=== PATIENT | male | born 1990 | race African-American/Black ===

== ENCOUNTER 2017-02-10 12:34 | Inpatient (IN) | payer BC, MEDICAID ==
[~2017-02-10] VITALS: Ht 167.6 cm; Wt 89.3 kg
[2017-02-10] MEDS ORDERED: HYDROmorphone 1 mg/ml syringe IV ONE ×2 (13:00→14:55)
[2017-02-10] MEDS ORDERED: HYDROmorphone inj. 0.5 MG/0.5 ML DISP.SYRIN ONE ×2 (13:21→14:58)
[2017-02-10] MEDS: normal saline 1000ml 1,000 ML IV SCH ×6 (13:22→20:03)
[2017-02-10] MEDS ORDERED: diphenhydrAMINE 50 mg/ml inj IV ONE (13:30)
[2017-02-10 13:31] LABS: ABSOLUTE RETICS # 127300 /CUMM (23000-93000); BASOPHILS % (AUTO) 0.4 % (0-1); EOSINOPHILS # (AUTO) 0.1 X10'3 (0-0.9); EOSINOPHILS % (AUTO) 1.2 % (0-6); HEMOGLOBIN 13.7 g/dl (14.0-17.9); LYMPHOCYTES # (AUTO) 1.8 X10'3 (1.1-4.8); MEAN CORPUSCULAR HEMOGLOBIN 24.7 PG (27.0-31.0); MEAN CORPUSCULAR HGB CONC 32.5 % (33.0-36.5); MEAN CORPUSCULAR VOLUME 75.9 FL (78-98); MEAN PLATELET VOLUME 9.3 FL (7.4-10.4); MONOCYTES # (AUTO) 0.5 X10'3 (0-0.9); MONOCYTES % (AUTO) 6.6 % (2-12); NEUTROPHILS # (AUTO) 4.9 X10'3 (1.8-7.7); NEUTROPHILS % (AUTO) 66.8 % (42-75); PLATELET COUNT 180 X10'3 (140-440); RED BLOOD COUNT 5.53 X10'6 (4.70-6.10); RED CELL DISTRIBUTION WIDTH 17.6 % (11.5-14.5); RETICULOCYTE % (AUTO) 2.3 % (0.5-1.5); WHITE BLOOD COUNT 7.3 X10'3 (4.5-11.0)
[2017-02-10 13:43] LABS: ALANINE AMINOTRANSFERASE 36 U/L (12-78); ALBUMIN 4.2 G/DL (3.4-5.0); ALBUMIN/GLOBULIN RATIO 1.2 (1.1-1.5); ALKALINE PHOSPHATASE 136 IU/L (46-116); ANION GAP 9 (8-16); ASPARTATE AMINO TRANSFERASE 21 U/L (10-37); BILIRUBIN,TOTAL 1.2 MG/DL (0.1-1.0); BLOOD UREA NITROGEN 9 MG/DL (7-18); BUN/CREATININE RATIO 7.3 (5.4-32.0); CALCIUM 9.6 MG/DL (8.5-10.1); CHLORIDE 107 MMOL/L (99-107); CREATININE 1.23 MG/DL (0.60-1.10); GLUCOSE 105 MG/DL (70-104); POTASSIUM 3.8 MMOL/L (3.5-5.1); SODIUM 143 MMOL/L (135-145); TOTAL CARBON DIOXIDE 26.6 MMOL/L (24-32); TOTAL PROTEIN 7.7 G/DL (6.4-8.2); eGFR 72 ML/MIN
[2017-02-10] MEDS ORDERED: HYDROmorphone inj. 0.5 MG/0.5 ML DISP.SYRIN IV ONE (14:05)
[2017-02-10 15:04] LABS: CLARITY,URINE CLEAR (Clear); COLOR,URINE YELLOW (Yellow); GLUCOSE, URINE NEGATIVE (Neg); KETONES,URINE NEGATIVE (Neg); LEUKOCYTE ESTERASE ,URINE NEGATIVE (Neg); NITRITES, URINE NEGATIVE (Neg); OCCULT BLOOD,URINE NEGATIVE (Neg); PROTEIN,URINE NEGATIVE (Neg); UROBILINOGEN,URINE 0.2 E.U/dL (0.2-1.0)
[2017-02-10 15:14] LABS: URINE AMPHETAMINE SCREEN NEGATIVE (Neg); URINE BARBITUATE SCREEN NEGATIVE (Neg); URINE BENZODIAZEPINES SCREEN NEGATIVE (Neg); URINE CANNABINOID SCREEN POSITIVE (Neg); URINE COCAINE SCREEN NEGATIVE (Neg); URINE METHADONE SCREEN NEGATIVE (Neg); URINE OPIATE SCREEN NEGATIVE (Neg); URINE PHENCYCLIDINE SCREEN NEGATIVE (Neg)
[2017-02-10] MEDS ORDERED: morphine 5 MG/ML injection IV ONE (15:25)
[2017-02-10 15:28] LABS: UA COLLECTION TYPE VOIDED
[2017-02-10] MEDS ORDERED: normal saline 1000ml 1,000 ML IV SCH (16:40)
[2017-02-10] MEDS ORDERED: acetaminophen 650mg rectal suppository RC PRN (18:15)
[2017-02-10] MEDS ORDERED: mag hydrox/Alum hydrox/simeth 30ml oral suspension PO PRN (18:15)
[2017-02-10] MEDS ORDERED: metoclopramide 5 mg/ml inj IV PRN (18:15)
[2017-02-10] MEDS ORDERED: HYDROcodone/acetaminophen 5mg/325mg tablet PO PRN (18:15)
[2017-02-10] MEDS ORDERED: diphenhydrAMINE 25mg capsule PO PRN (18:15)
[2017-02-10] MEDS ORDERED: acetaminophen 325mg tablet PO PRN ×2 (18:15)
[2017-02-10] MEDS ORDERED: HYDROcodone/acetaminophen 10/325mg tab PO PRN (18:15)
[2017-02-10] MEDS ORDERED: HYDROmorphone 1 mg/ml syringe IV PRN ×2 (18:15)
[2017-02-10] MEDS ORDERED: diphenhydrAMINE 50 mg/ml inj IV PRN (18:15)
[2017-02-10] MEDS ORDERED: ondansetron/PF 4mg/2ml inj IV PRN (18:15)
[2017-02-10] MEDS ORDERED: magnesium hydroxide 30ml (MOM) UD suspension PO PRN (18:15)
[2017-02-10] MEDS ORDERED: bisacodyl 10mg suppository rectal RC PRN (18:15)
[2017-02-10] MEDS ORDERED: normal saline 1000ml 1,000 ML IVB ONE (18:20)
[2017-02-10] MEDS ORDERED: HYDROmorphone/NS 1 mg/ml CADD 50 ML IV SCH ×2 (18:40→18:50)
[2017-02-10] MEDS ORDERED: CADD PCA waste documentation MC SCH (18:49)
[2017-02-10] MEDS: docusate sod 100mg capsule PO SCH (20:07)
[2017-02-10] MEDS: heparin, porcine 5000 units/ml vial SQ SCH (20:08)
[2017-02-10] MEDS ORDERED: naloxone 0.4 mg/ml inj IV PRN (20:35)
[2017-02-10] MEDS: HYDROmorphone/NS 1 mg/ml CADD 50 ML IV SCH ×2 (21:00→21:49)
[2017-02-10] MEDS ORDERED: temazepam 15mg capsule PO PRN (21:00)
[2017-02-10] MEDS: ketorolac trometh. 30mg/ml inj. IV PRN (22:44)
[2017-02-10 23:00] VITALS: BP 110/59
[2017-02-11] MEDS: HYDROmorphone/NS 1 mg/ml CADD 50 ML IV SCH ×12 (01:00→23:00)
[2017-02-11] MEDS: normal saline 1000ml 1,000 ML IV SCH ×3 (05:07→23:50)
[2017-02-11 06:08] LABS: BASOPHILS % (AUTO) 0.2 % (0-1); EOSINOPHILS # (AUTO) 0.1 X10'3 (0-0.9); EOSINOPHILS % (AUTO) 2.7 % (0-6); HEMATOCRIT 35.8 % (42.0-52.0); HEMOGLOBIN 11.6 g/dl (14.0-17.9); LYMPHOCYTES % (AUTO) 19.1 % (21-51); MEAN CORPUSCULAR HEMOGLOBIN 24.6 PG (27.0-31.0); MEAN CORPUSCULAR HGB CONC 32.5 % (33.0-36.5); MEAN CORPUSCULAR VOLUME 75.9 FL (78-98); MEAN PLATELET VOLUME 8.7 FL (7.4-10.4); MONOCYTES # (AUTO) 0.4 X10'3 (0-0.9); MONOCYTES % (AUTO) 7.4 % (2-12); NEUTROPHILS # (AUTO) 3.6 X10'3 (1.8-7.7); NEUTROPHILS % (AUTO) 70.6 % (42-75); PLATELET COUNT 91 X10'3 (140-440); RED BLOOD COUNT 4.72 X10'6 (4.70-6.10); RED CELL DISTRIBUTION WIDTH 17.1 % (11.5-14.5); WHITE BLOOD COUNT 5.1 X10'3 (4.5-11.0)
[2017-02-11 06:39] LABS: ALANINE AMINOTRANSFERASE 60 U/L (12-78); ALBUMIN 3.4 G/DL (3.4-5.0); ALBUMIN/GLOBULIN RATIO 1.1 (1.1-1.5); ALKALINE PHOSPHATASE 105 IU/L (46-116); ANION GAP 6 (8-16); ASPARTATE AMINO TRANSFERASE 123 U/L (10-37); BILIRUBIN,TOTAL 1.2 MG/DL (0.1-1.0); BLOOD UREA NITROGEN 7 MG/DL (7-18); BUN/CREATININE RATIO 6.9 (5.4-32.0); CALCIUM 8.5 MG/DL (8.5-10.1); CHLORIDE 108 MMOL/L (99-107); CREATININE 1.01 MG/DL (0.60-1.10); GLUCOSE 97 MG/DL (70-104); POTASSIUM 3.9 MMOL/L (3.5-5.1); SODIUM 141 MMOL/L (135-145); TOTAL CARBON DIOXIDE 26.8 MMOL/L (24-32); TOTAL PROTEIN 6.6 G/DL (6.4-8.2); eGFR > 90 ML/MIN
[2017-02-11] MEDS: ketorolac trometh. 30mg/ml inj. IV PRN (07:51)
[2017-02-11] MEDS: pantoprazole 40mg Tablet.DR PO SCH (07:53)
[2017-02-11 08:00] VITALS: BP 122/69
[2017-02-11] MEDS: docusate sod 100mg capsule PO SCH ×2 (08:00→20:00)
[2017-02-11] MEDS: heparin, porcine 5000 units/ml vial SQ SCH ×2 (08:00→20:00)
[2017-02-11] MEDS ORDERED: FOLI0.4T2 PO (15:33)
[2017-02-11] MEDS ORDERED: HYDR500C2 PO (15:33)
[2017-02-11 18:00] VITALS: BP 137/67
[2017-02-11] MEDS: HYDROmorphone 2mg tablet PO PRN (21:20)
[2017-02-11] MEDS: folic acid 0.4mg tablet PO SCH (21:21)
[2017-02-12] VITALS: BP 123/66
[2017-02-12] MEDS: HYDROmorphone/NS 1 mg/ml CADD 50 ML IV SCH ×12 (01:00→23:00)
[2017-02-12] MEDS: HYDROmorphone 2mg tablet PO PRN ×5 (01:46→20:38)
[2017-02-12 06:09] LABS: BASOPHILS % (AUTO) 0.5 % (0-1); EOSINOPHILS # (AUTO) 0.1 X10'3 (0-0.9); EOSINOPHILS % (AUTO) 1.7 % (0-6); HEMATOCRIT 37.3 % (42.0-52.0); HEMOGLOBIN 12.3 g/dl (14.0-17.9); LYMPHOCYTES # (AUTO) 1.1 X10'3 (1.1-4.8); MEAN CORPUSCULAR HEMOGLOBIN 24.8 PG (27.0-31.0); MEAN CORPUSCULAR HGB CONC 33.1 % (33.0-36.5); MEAN CORPUSCULAR VOLUME 74.9 FL (78-98); MEAN PLATELET VOLUME 8.8 FL (7.4-10.4); MONOCYTES # (AUTO) 0.6 X10'3 (0-0.9); MONOCYTES % (AUTO) 9.9 % (2-12); NEUTROPHILS # (AUTO) 4.1 X10'3 (1.8-7.7); NEUTROPHILS % (AUTO) 68.9 % (42-75); PLATELET COUNT 99 X10'3 (140-440); RED BLOOD COUNT 4.97 X10'6 (4.70-6.10); RED CELL DISTRIBUTION WIDTH 17.6 % (11.5-14.5)
[2017-02-12 06:30] LABS: ALANINE AMINOTRANSFERASE 85 U/L (12-78); ALBUMIN 3.4 G/DL (3.4-5.0); ALKALINE PHOSPHATASE 175 IU/L (46-116); ANION GAP 6 (8-16); ASPARTATE AMINO TRANSFERASE 178 U/L (10-37); BILIRUBIN,TOTAL 1.1 MG/DL (0.1-1.0); BLOOD UREA NITROGEN 5 MG/DL (7-18); BUN/CREATININE RATIO 4.7 (5.4-32.0); CALCIUM 8.8 MG/DL (8.5-10.1); CHLORIDE 104 MMOL/L (99-107); CREATININE 1.07 MG/DL (0.60-1.10); GLUCOSE 94 MG/DL (70-104); POTASSIUM 3.6 MMOL/L (3.5-5.1); SODIUM 140 MMOL/L (135-145); TOTAL CARBON DIOXIDE 29.7 MMOL/L (24-32); TOTAL PROTEIN 6.9 G/DL (6.4-8.2); eGFR > 90 ML/MIN
[2017-02-12] MEDS: pantoprazole 40mg Tablet.DR PO SCH (07:30)
[2017-02-12 08:00] VITALS: BP 113/60
[2017-02-12] MEDS: heparin, porcine 5000 units/ml vial SQ SCH ×2 (08:00→20:00)
[2017-02-12] MEDS: docusate sod 100mg capsule PO SCH ×2 (08:00→20:38)
[2017-02-12] MEDS: folic acid 0.4mg tablet PO SCH (08:33)
[2017-02-12] MEDS: normal saline 1000ml 1,000 ML IV SCH ×2 (08:37→18:58)
[2017-02-12 11:00] VITALS: BP 129/59
[2017-02-12 16:36] VITALS: BP 119/67
[2017-02-12 20:00] VITALS: BP 121/69
[2017-02-13] VITALS: BP 146/69
[2017-02-13] MEDS: HYDROmorphone 2mg tablet PO PRN (00:39)
[2017-02-13] MEDS: HYDROmorphone/NS 1 mg/ml CADD 50 ML IV SCH ×6 (01:00→11:00)
[2017-02-13] MEDS: normal saline 1000ml 1,000 ML IV SCH (03:48)
[2017-02-13 06:06] LABS: BASOPHILS % (AUTO) 0.4 % (0-1); EOSINOPHILS # (AUTO) 0.1 X10'3 (0-0.9); EOSINOPHILS % (AUTO) 2.7 % (0-6); HEMATOCRIT 34.4 % (42.0-52.0); HEMOGLOBIN 11.1 g/dl (14.0-17.9); MEAN CORPUSCULAR HEMOGLOBIN 24.8 PG (27.0-31.0); MEAN CORPUSCULAR HGB CONC 32.3 % (33.0-36.5); MEAN CORPUSCULAR VOLUME 76.8 FL (78-98); MEAN PLATELET VOLUME 8.7 FL (7.4-10.4); MONOCYTES # (AUTO) 0.4 X10'3 (0-0.9); NEUTROPHILS # (AUTO) 3.3 X10'3 (1.8-7.7); NEUTROPHILS % (AUTO) 66.9 % (42-75); PLATELET COUNT 78 X10'3 (140-440); RED BLOOD COUNT 4.49 X10'6 (4.70-6.10); RED CELL DISTRIBUTION WIDTH 16.8 % (11.5-14.5); WHITE BLOOD COUNT 4.9 X10'3 (4.5-11.0)
[2017-02-13 06:46] LABS: ALBUMIN 3.2 G/DL (3.4-5.0); ALBUMIN/GLOBULIN RATIO 0.9 (1.1-1.5); ANION GAP 6 (8-16); ASPARTATE AMINO TRANSFERASE 112 U/L (10-37); BILIRUBIN,TOTAL 1.4 MG/DL (0.1-1.0); BLOOD UREA NITROGEN 5 MG/DL (7-18); BUN/CREATININE RATIO 5.3 (5.4-32.0); CALCIUM 8.4 MG/DL (8.5-10.1); CHLORIDE 105 MMOL/L (99-107); CREATININE 0.95 MG/DL (0.60-1.10); GLUCOSE 93 MG/DL (70-104); POTASSIUM 3.8 MMOL/L (3.5-5.1); SODIUM 141 MMOL/L (135-145); TOTAL CARBON DIOXIDE 29.7 MMOL/L (24-32); TOTAL PROTEIN 6.8 G/DL (6.4-8.2); eGFR > 90 ML/MIN
[2017-02-13 06:47] LABS: ALANINE AMINOTRANSFERASE 78 U/L (12-78); ALKALINE PHOSPHATASE 153 IU/L (46-116)
[2017-02-13 07:17] VITALS: BP 119/61
[2017-02-13] MEDS: pantoprazole 40mg Tablet.DR PO SCH (07:32)
[2017-02-13] MEDS: folic acid 0.4mg tablet PO SCH (07:32)
[2017-02-13] MEDS: heparin, porcine 5000 units/ml vial SQ SCH (07:33)
[2017-02-13] MEDS: docusate sod 100mg capsule PO SCH (07:36)
[2017-02-13 08:03] LABS: ANISOCYTOSIS 1+; MICROCYTOSIS 2+; PLATELET ESTIMATE DECREASED
[2017-02-13 08:04] LABS: HYPOCHROMASIA 1+; POIKILOCYTOSIS FEW; POLYCHROMASIA FEW; TARGET CELLS 1+
[2017-02-13 11:47] VITALS: BP 119/72
[2017-02-13] MEDS ORDERED: OXYC-511 PO (12:59)
== END 2017-02-13 14:34 | disposition home or self-care (01) | DRG 812 ==
LOC: ER 12:35 → ED HOLD 18:20 → SUR 3N 22:20
PROVIDERS: ADMIT Family Medicine; ATTEND Family Medicine
DX: D57.00 Hb-SS disease with crisis, unspecified (principal); E86.0 Dehydration; I10 Essential (primary) hypertension; F19.10 Other psychoactive substance abuse, uncomplicated
CPT/HCPCS: 36415; 71045; 80053; 80305; 81003; 83605; 85025; 85045; 87040; 87070; 93005; 96361; 96374; 96375; 96376; 99285; J1170; J1200; J1644; J1885; J2270; J7030